=== PATIENT | male | born 1965 | race Two or more races ===

== ENCOUNTER 2018-01-19 21:59 | Emergency (ER) | payer OTHER ==
[~2018-01-19] VITALS: Ht 167.6 cm; Wt 125.2 kg
[2018-01-20] MEDS ORDERED: CIPRO500 MG PO (02:00)
[2018-01-20] MEDS ORDERED: TAMS0.4C PO (02:00)
[2018-01-20] MEDS ORDERED: KETO10TA2 PO (02:00)
== END 2018-01-20 02:26 ==
LOC: ER 21:59
DX: N21.1 Calculus in urethra (principal)

== ENCOUNTER 2018-12-15 07:12 | Emergency (ER) | payer OTHER ==
[~2018-12-15] VITALS: Ht 167.6 cm; Wt 127.9 kg
[~2018-12-15 07:12] MED LIST: CIPRO500 MG PO; KETO10TA2 PO; TAMS0.4C PO
[2018-12-15] MEDS ORDERED: TRIBENZOR 20-51 EACH PO (07:45)
== END 2018-12-15 15:26 | disposition home or self-care (01) ==
LOC: ER 07:12
DX: N20.1 Calculus of ureter (principal); R10.32 Left lower quadrant pain

== ENCOUNTER → 2020-05-24 08:00 | Outpatient (CLI) | payer OTHER ==
[~2020-05-24 08:00] MED LIST changes: +TRIBENZOR 20-51 EACH PO
== END | disposition home or self-care (01) ==
LOC: PPH VACUNA 08:00
DX: Z23 Encounter for immunization (principal)

== ENCOUNTER 2020-11-24 13:00 | Outpatient (CLI) | payer OTHER | END 2020-11-24 13:30 | disposition home or self-care (01) | LOC: PPH VACUNA 13:00 | PROVIDERS: ATTEND Emergency Medicine Pediatric Emergency Medicine | DX: Z23 Encounter for immunization (principal) ==